=== PATIENT | male | born 1965 | race Caucasian/White ===

== ENCOUNTER 2023-06-20 18:22 | Emergency (ER) | payer OTHER, SELFPAY ==
[2023-06-20 18:23] VITALS: BP 177/100; PULSE 112; RESP 14; TEMP 37.2; O2SAT 100; BMI 26.1
[2023-06-20 18:26] VITALS: BP 177/100; PULSE 110; O2SAT 98
[2023-06-20 18:27] VITALS: BP 165/94
--- NOTE | 2023-06-20 18:43 | ED_ITS ---
HPI - General Adult General Chief complaint: Eye Problems Stated complaint: L eye feels cut up/sand in eye T-2 Time Seen by Provider: 06/20/23 18:29 Source: patient Mode of arrival: Ambulatory Limitations: no limitations History of Present Illness HPI narrative: Patient is a 57-year-old male. States 2 days ago he was cleaning out the start her of his vehicle. He states he felt like he got sand in his left eye. He states he is washed his eye several times. He feels like he did remove some of the sand however still has quite a bit of discomfort in that eye. Still feels like there is a foreign body sensation. States that he thinks that he cut his eye trying to get the sand out. He did put a contact lens in the eye because he thought that the piece of sand was up under his upper eyelid and he was trying to protect his eye. He was seen at clinic on [address] and was given a prescription for erythromycin ointment. Related Data Home Medications Medication Instructions Recorded Confirmed IBUPROFEN (#CAP-PROFEN) 800 mg PO BID ##0 10/29/10 duloxetine 60 mg capsule,delayed ##0 04/06/16 release (Cymbalta) omeprazole 20 mg capsule,delayed PRN ##0 04/06/16 release Previous Rx's Medication Instructions Recorded moxifloxacin 0.5 % eye drops See Rx Instructions .Route 06/20/23 .COMPLEX #3 mL Allergies Allergy/AdvReac Type Severity Reaction Status Date / Time MOST NUTS Allergy Intermediate FACE Uncoded 10/02/17 12:12 BLOATING SEAFOOD Allergy Intermediate QUEASY/VOMI Uncoded 10/02/17 12:12 TING Review of Systems Constitutional Constitutional: Reports system reviewed and no additional complaints, except as documented Eyes Eyes: Reports system reviewed and no additional complaints, except as documented Integumentary/Breasts Skin/Breast: Reports system reviewed and no additional complaints, except as documented Patient History Surgical History (Updated 10/22/17 @ 05:49 by Conversion Provider) Status post discectomy Status post discectomy Social History Smoking Status: Unknown if ever smoked Smoking Status: Unknown if ever smoked alcohol intake frequency: holidays/special occasions only Substance Use Type: does not use Exam Initial Vital Signs Initial Vital Signs: Vital Signs Temperature 98.9 F 06/20/23 18:23 Pulse Rate 112 H 06/20/23 18:23 Respiratory Rate 14 06/20/23 18:23 Blood Pressure 177/100 H 06/20/23 18:23 Pulse Oximetry 100 06/20/23 18:23 Oxygen Delivery Method Room Air 06/20/23 18:23 Const General: cooperative and comfortable [facility] Head: normal to inspection and normocephalic Eyes Alignment and Position: alignment normal Periorbital: periorbital findings abnormal left periorbital tenderness Eyelids: eyelids normal Conjunctivae: conjunctival abnormality left conjunctival chemosis and conjunctival injection diffuse; without discharge and without subconjunctival hemmorhages Sclera: scleral abnormality left scleral injection diffuse Cornea: corneas abnormal on the left fluorescein used, abrasion central and foreign body; without ulcerations and fluorescein used Pupils: PERRL EOM: EOM intact bilaterally Other: There did appear to be a foreign body in the central portion of the left cornea. Unsure the exact make up with the material but it was easily removed with a cotton tip applicator. There was a corneal abrasion underneath this. There were also small foreign bodies in the temporal aspect of the left sclera that were easily removed with a cotton tip applicator. No foreign body was noted under the under eyelid nor under the upper eyelid. A slit-lamp was used for this exam. These findings were also after the patient irrigated his eye 1 L of lactated Ringer's. Skin General: no rashes or lesions noted Procedures Foreign Body EYE Location: eye (L) Topical anesthetic used: proparacaine Foreign body: other (Unsure of make up a foreign body) Evidence of corneal penetration: No Technique: cotton tip swab Procedure performed under: slit-lamp Post-procedure medication: ophthalmic antibiotic Patient tolerated procedure: well Course Orders Ordered: Discontinued Medications Fluorescein Sodium (Fluorescein 1 Mg Strip) 1 mg EYE-LEFT NOW ONE Stop: 06/20/23 18:26 Last Admin: 06/20/23 18:48 Dose: 1 mg Documented By: TAMARA Proparacaine HCl (Proparacaine 0.5% Ophth Danette) 1 drops EYE-LEFT NOW ONE Stop: 06/20/23 18:27 Last Admin: 06/20/23 18:47 Dose: 1 drop Documented By: TAMARA Vital Signs Vital signs: Vital Signs - 8 hr 06/20/23 18:23 06/20/23 18:26 06/20/23 18:26 Temperature 98.9 F Pulse Rate 112 H 110 H Respiratory Rate 14 Blood Pressure 177/100 H 177/100 H Pulse Oximetry 100 98 Oxygen Delivery Method Room Air 06/20/23 18:27 06/20/23 19:52 06/20/23 19:55 Temperature Pulse Rate 98 H 72 Respiratory Rate 21 Blood Pressure 165/94 H 138/92 H Pulse Oximetry 96 97 Oxygen Delivery Method Room Air Medical Decision Making MDM Narrative Medical decision making narrative: He has an obvious corneal abrasion without indication of ulceration. I was able to remove small foreign bodies which very well could have been sand per the patient's report although the exact make up of these was unknown. It was not metallic. There was no signs of an open globe. He is chemosis on the temporal aspect. There are no lacerations noted. Patient's eye is very injected. I suspect that this is what quite a bit of his foreign body sensation is. I did a thorough exam of his eye and I could not locate any further foreign bodies. I advised that he not put a contact lens back into his eye. We talked about the risks of this and progression to ulcerations. 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 Will discharge him home with return precautions. He expressed understanding and agreement. Discharge Plan Departure Patient Disposition: Home Clinical Impression: Corneal abrasion, left, Chemosis of left conjunctiva Instructions: DI for Corneal Abrasion Activity Restrictions/Additional Instructions: I recommend that you do not put contact lenses in your eyes until everything is healed. A prescription for eyedrops was sent to [facility]. Until then you can put the erythromycin ointment and your left eye 3 times a day however recommend that you start using the eyedrops as soon as you can pick them up tomorrow. Contact your primary care doctor for a follow-up. Prescriptions: New moxifloxacin 0.5 % drops See Rx Instructions .ROUTE .COMPLEX Qty: 3 1RF Rx Instructions: 1 drp into left eye Q2H while awake for 2D then 2 GTT OS Q4H while awake for the next 5 days No Action IBUPROFEN (#CAP-PROFEN) 800 mg PO BID Qty: 0 duloxetine [Cymbalta] 60 MG capsule,delayed release(DR/EC) Qty: 0 omeprazole 20 MG capsule,delayed release(DR/EC) PRN Qty: 0 Referrals: Josesito Valdivia MD [Primary Care Provider] - Stand Alone Forms: Patient Portal/API
[2023-06-20] MEDS: PROPARACAINE 0.5% OPHTH SOL 1 DROPS EYE-LEFT (18:47)
[2023-06-20] MEDS: FLUORESCEIN 1 MG STRIP EYE-LEFT (18:48)
[2023-06-20 19:52] VITALS: PULSE 98; O2SAT 96
[2023-06-20 19:55] VITALS: BP 138/92; PULSE 72; RESP 21; O2SAT 97
== END 2023-06-20 20:19 | disposition home or self-care (01) ==
PROVIDERS: Emergency Provider Emergency Medicine; Family Provider Family Medicine; PCP Family Medicine
DX: S05.02XA Injury of conjunctiva and corneal abrasion without foreign body, left eye, initial encounter (principal); H11.422 Conjunctival edema, left eye
CPT/HCPCS: 65222; 99282; 99283